=== PATIENT | female | born 1990 | race Caucasian/White ===

== ENCOUNTER 2016-10-24 20:45 | Inpatient (IN) | payer OTHER ==
[~2016-10-24] VITALS: Ht 160 cm; Wt 75.7 kg
[~2016-10-24 20:45] MED LIST: COLACE100 MG PO; FERROUS SULFAT325 M1 PO; FOLIC ACID1 M1 PO; PRENATAL1 TA6 PO
[2016-10-24] MEDS ORDERED: LACTATED RINGERS 1,000 ML IV SCH (20:57)
[2016-10-24] MEDS ORDERED: OXYTOCIN 20 UNITS/LR PREMIX 1,000 ML IV PRN (21:00)
[2016-10-24] MEDS ORDERED: CARBOPROST 250 MCG/ML AMP IM PRN (21:00)
[2016-10-24] MEDS ORDERED: PROMETHAZINE 25 MG/ML VIAL IVP PRN (21:00)
[2016-10-24] MEDS ORDERED: NALBUPHINE HYDROCHLORIDE 10 MG/ML VIAL IVP PRN (21:00)
[2016-10-24] MEDS ORDERED: METHYLERGONOVINE 0.2 MG/ML AMP IM PRN (21:00)
[2016-10-24 22:07] VITALS: BP 136/87
[2016-10-24] MEDS ORDERED: ROPIVACAINE 0.2%/NS PREMIX 250 ML EPI ONE (22:15)
[2016-10-24] MEDS ORDERED: OXYTOCIN 10 UNITS/ML VIAL ONE (22:48)
[2016-10-24] MEDS ORDERED: OXYTOCIN 20 UNITS/LR PREMIX 1,000 ML IV ONE (22:49)
[2016-10-24] MEDS ORDERED: NALBUPHINE HYDROCHLORIDE 10 MG/ML VIAL ONE (23:10)
[2016-10-24] MEDS ORDERED: PROMETHAZINE 25 MG/ML VIAL ONE (23:11)
[2016-10-24] MEDS ORDERED: LIDOCAINE 1% 500 MG/50 ML VIAL INJ SCH (23:50)
[2016-10-24] MEDS ORDERED: LIDOCAINE 1% 0 ML ONE (23:58)
[2016-10-25] MEDS ORDERED: IBUPROFEN 800 MG TAB PO PRN (01:25)
[2016-10-25] MEDS ORDERED: oxyCODONE/APAP 5/325 MG 1 TAB TAB PO PRN (01:25)
[2016-10-25] MEDS ORDERED: BENZOCAINE/MENTHOL 20%-0.5% 60 GM CAN TP PRN (01:25)
[2016-10-25] MEDS ORDERED: WITCH HAZEL 40 PAD PACKAGE TP PRN (01:25)
[2016-10-25] MEDS ORDERED: TEMAZEPAM 15 MG CAP PO PRN (01:25)
[2016-10-25] MEDS ORDERED: INFLUENZA VIRUS VACCINE QUAD 0.5 ML SYR IMVAC SCH ×2 (06:30→09:00)
--- NOTE | 2016-10-25 09:15 | NUR ---
PATIENT HAS BEEN SCREENED AND CATEGORIZED LOW NUTRITION RISK. PATIENT WILL BE SEEN WITHIN 7 DAYS OF ADMISSION. 10/31/[address]
[2016-10-25] MEDS: HYDROcodone/APAP 5/325 MG 1 TAB TAB PO PRN (09:31)
[2016-10-25] MEDS ORDERED: DOCUSATE SOD/SENNA 50/8.6 MG 1 TAB PO SCH (21:00)
[2016-10-26] MEDS: HYDROcodone/APAP 5/325 MG 1 TAB TAB PO PRN (07:13)
== END 2016-10-26 14:20 | disposition home or self-care (01) | DRG 775 ==
LOC: MLD 20:45 → MFCC 10-25 03:45
PROVIDERS: ADMIT Obstetrics & Gynecology; ATTEND Obstetrics & Gynecology
PROC: 10E0XZZ Delivery of Products of Conception, External Approach (ICD-10-PCS; principal; 2016-10-24)
PROC: 0KQM0ZZ Repair Perineum Muscle, Open Approach (ICD-10-PCS; 2016-10-24)
PROC: 00HU33Z Insertion of Infusion Device into Spinal Canal, Percutaneous Approach (ICD-10-PCS; 2016-10-24)
PROC: 3E0R3CZ (ICD-10-PCS; 2016-10-24)
DX: O70.1 Second degree perineal laceration during delivery (principal); Z37.0 Single live birth; Z3A.39 39 weeks gestation of pregnancy